=== PATIENT | female | born 1985 | race African-American/Black ===

== ENCOUNTER 2017-03-14 17:50 | Inpatient (IN) | payer MEDICAID, OTHER ==
[~2017-03-14] VITALS: Ht 167.6 cm; Wt 75.9 kg
[2017-03-14 18:11] VITALS: Ht 167.6 cm; Wt 75.9 kg
[2017-03-14 18:12] VITALS: BP 113/84; PULSE 101
[2017-03-14] MEDS ORDERED: PREN1.4T2 PO (18:15)
--- NOTE | 2017-03-14 19:36 | RADRPT ---
PROCEDURE: Biophysical profile CLINICAL INDICATION: distress. History of short cervix. TECHNIQUE: Color and tejeda-scale ultrasound images of an intrauterine gestation were obtained. COMPARISON: None FINDINGS: A single live intrauterine gestation is identified in cephalic position with an estimated hear t rate of 171 beats per minute. The placenta is located anteriorly and has a grade of 1. The cervi x measures 1.5 cm in length.. No evidence of previa or abruption identified. DEANN is 12.8 cm. movement 2/2. tone 2/2. breathing movement 2/2. Qualitative AFV 2/2 Total biophysical profile 03/07 IMPRESSION: 03/07 biophysical profile. Cervix that measures 1.5 cm in length. RPTAT: AA .Esa Chen MD, Date Time Electronically viewed and signed by .Esa Chen MD, on 03/14/2017 19:36 .P/
[2017-03-14] MEDS: LACTATED RINGER'S 1,000 ML IV SCH (20:06)
[2017-03-14 20:39] LABS: ADD UMIC NO; UR ASCORBIC ACID NEGATIVE (NEGATIVE); UR BILIRUBIN (Dip) NEGATIVE (NEGATIVE); UR BLOOD (Dip) NEGATIVE (NEGATIVE); UR CLARITY CLEAR (CLEAR); UR COLOR YELLOW (YELLOW); UR GLUCOSE (Dip) NEGATIVE (NEGATIVE); UR KETONES (Dip) TRACE mg/dL (NEGATIVE); UR LEUKOCYTE ESTERASE (Dip) NEGATIVE Leu/ul (NEGATIVE); UR NITRITE (Dip) NEGATIVE (NEGATIVE); UR SPECIFIC GRAVITY (Dip) 1.009 (1.003-1.030); UR TOTAL PROTEIN (Dip) NEGATIVE (NEGATIVE); UR UROBILINOGEN (Dip) NEGATIVE (NEGATIVE)
[2017-03-14 20:52] LABS: BASOPHILS % 0.3 % (0.0-2.0); EOSINOPHILS # 0.1 10^3/ul (0.0-0.5); EOSINOPHILS % 0.8 % (0.0-7.0); HEMATOCRIT 31.2 % (37.0-47.0); HEMOGLOBIN 10.5 g/dl (12.0-16.0); LYMPHOCYTES # 2.1 10^3/ul (0.8-2.9); LYMPHOCYTES % 27.9 % (15.0-51.0); MEAN CORPUSCULAR HEMOGLOBIN 32.2 pg (29.0-33.0); MEAN CORPUSCULAR HGB CONC 33.7 g/dl (32.0-37.0); MEAN CORPUSCULAR VOLUME 95.7 fl (82.0-101.0); MEAN PLATELET VOLUME 11.8 fl (7.4-10.4); MONOCYTE # 0.4 10^3/ul (0.3-0.9); MONOCYTES % 4.6 % (0.0-11.0); NEUTROPHILS % 66.3 % (39.0-77.0); PLATELET COUNT 162 10^3/UL (140-415); RED BLOOD COUNT 3.26 10^6/ul (4.20-5.40); RED CELL DISTRIBUTION WIDTH 12.3 % (11.5-14.5); WHITE BLOOD COUNT 7.7 10^3/ul (4.8-10.8)
--- NOTE | 2017-03-14 20:59 | RADRPT ---
PROCEDURE: Obstetrical ultrasound greater than 14 weeks CLINICAL INDICATION: labor. Short cervix TECHNIQUE: Real time sonographic imaging of the gravid uterus is performed transabdominally and mu ltiple static tejeda scale and Doppler images are submitted for review as are measurements. The image s are reviewed on the PACS. COMPARISON: Biophysical profile 03/14/2017 FINDINGS: There is a single living intrauterine gestation in cephalic presentation. The heart beat is estimated at 144 bpm. The measurements are as follows: BPD:7.84 cm HC:27.66 cm AC:30.23 cm FL:6.12 cm Estimated gestational age is 31 weeks 6 days. The estimated date of delivery is 05/10/2017. The estimated weight is 2059 grams. Placenta is anterior and grade 1. There is no evidence of placenta previa or abruption. RPTAT:HJJR IMPRESSION: 1. Single viable intrauterine gestation estimated at 31 weeks 6 days with the estimated date of deli very 05/10/2017. 2. Estimated weight 2059 g, the 57th percentile. Physician Rema Date Time Electronically viewed and signed by Physician Rema on 03/14/2017 20:59 /
[2017-03-14 21:35] LABS: BARBITURATES Negative (NEGATIVE); BENZODIAZEPINES Negative (NEGATIVE); CANNABINOIDS Positive (NEGATIVE); COCAINE Negative (NEGATIVE); OPIATES Negative (NEGATIVE)
--- NOTE | 2017-03-14 22:32 | HP ---
Date/Time of Note Date/Time of Note DATE: 03/14/17 TIME: 22:25 OB - History Hx of Present Free Text/Dictation 32yo at 32+2 with hx of short cervix since ~20 weeks on vaginal progesterone presents with painful UCs. Pt thinks her cervix has previously been 0.8cm. She states she has been having [place] Gloria contractions since she was 6 mths , however today she was walking around quite a bit and noticed more pain than she is used to. Pt reports experiencing 5-6 contractions per hour. Reports normal FM, denies LOF, VB or dysuria. Pt lives in [place] where she reports having received PNC since 6wks of . Last visit 03/03. She is in [place] to find schooling for her 3 children since her partner's job has recently relocated him here. S/p BMZ series ending PROCEDURE: Obstetrical ultrasound greater than 14 weeks CLINICAL INDICATION: labor. Short cervix TECHNIQUE: Real time sonographic imaging of the gravid uterus is performed transabdominally and multiple static tejeda scale and Doppler images are submitted for review as are measurements. The images are reviewed on the PACS. COMPARISON: Biophysical profile 03/14/2017 FINDINGS: There is a single living intrauterine gestation in cephalic presentation. The heart beat is estimated at 144 bpm. The measurements are as follows: BPD: 7.84 cm HC: 27.66 cm AC: 30.23 cm FL: 6.12 cm Estimated gestational age is 31 weeks 6 days. The estimated date of delivery is 05/10/2017. The estimated weight is 2059 grams. Placenta is anterior and grade 1. There is no evidence of placenta previa or abruption. RPTAT:HJJR IMPRESSION: 1. Single viable intrauterine gestation estimated at 31 weeks 6 days with the estimated date of delivery 05/10/2017. 2. Estimated weight 2059 g, the 57th percentile. PROCEDURE: Biophysical profile CLINICAL INDICATION: distress. History of short cervix. TECHNIQUE: Color and tejeda-scale ultrasound images of an intrauterine gestation were obtained. COMPARISON: None FINDINGS: A single live intrauterine gestation is identified in cephalic position with an estimated heart rate of 171 beats per minute. The placenta is located anteriorly and has a grade of 1. The cervix measures 1.5 cm in length.. No evidence of previa or abruption identified. DEANN is 12.8 cm. movement 2/2. tone 2/2. breathing movement 2/2. Qualitative AFV 2/2 Total biophysical profile 03/07 IMPRESSION: 03/07 biophysical profile. Cervix that measures 1.5 cm in length. Estimated Due Date: May 07, 2017 : 4 Para: 3 Care: Good Care (per pt report) Obstetrical Complications: None Medical Complications: Other (Hypoglycemia per pt- "If I don't eat I will faint ") Other Concerns: PCN allergy per patient's mother. Pt has no memory of taking PCN. Pt does not think she has anaphylactic reaction Past Family/Social History * chart not available. OB Admission Exam Vital Signs Vital Signs Vital Signs Date Time Temp Pulse Resp B/P Pulse Ox O2 Delivery O2 Flow Rate FiO2 03/14/17 18:12 98.2 101 113/84 Physical Exam HEENT: WNL Heart: Rhythm Normal Abdomen: WNL (gravid, nontender) Extremities: Normal Cervical Dilatation: 1cm Effacement: Other (80%) Station: -3 (posterior) Membranes: Intact Heart Rate: 140's Accelerations: Accelerations Present Decelerations: No Decelerations Varibility: Moderate Contractions on Admission: 6-10 Minutes Apart Last 72 hours Lab Results CBC & BMP 03/14/17 20:44 OB Assessment/Plan Other Assessment: Contractions Short Cervix Reactive NST Plan: Expectant Management Other plan: 1) Contractions: Given pt unknown to [facility] with hx of short cervix, will admit for observation overnight in the setting of ongoing contractions despite no change in SVE over 2 hours. FFN returned positive although test not indicated since TVCL <2cm -Continuous toco -At this time, delivery does not seem imminent. However, if UCs become more frequent, change in intensity or cervical dilation progresses, will repeat BMZ course with Nifedipine tocolysis through BMZ window and start GBS ppx with Ancef given allergy to PCN. 2)Short Cervix: Unclear if TVCL tonight is stable or different from prior given unavailability of out of state records. -Continue nightly vaginal progesterone -Repeat TVCL in AM -Consider MFM consult in AM 3)FWB: Reassuring. Reactive NST -NST qshift. CASTILLO NOLAN MD Mar 14, 2017 22:32
--- NOTE | 2017-03-15 00:27 | TRIAGE ---
OB Triage Datetime Report Generated by CPN: 03/15/2017 00:26 Datetime: 03/14/2017 23:55 Stage of : OB Triage Datetime: 03/14/2017 23:49 Monitor Mode: External Quality: Mild Pattern: Normal: <= 5 Contractions in 10 Minutes Resting Tone [place]: Relaxed Monitor Mode: External US FHR Baseline Changes: No Baseline Change Variability: Moderate 6-25 bpm Accelerations: 15X15 Decelerations: None Category: Category I Vaginal Exam Dilatation (cms): 1.0 Effacement (%): 70 Station: -3 Exam By: Vannessa Jonathon Membrane Status: Intact Vaginal Bleeding: None Cervix, Consistency: Moderate Cervix, Position: Posterior Datetime: 03/14/2017 23:00 Stage of : OB Triage Labor Evaluation Frequency: 2-6 Monitor Mode: External Quality: Mild Pattern: Normal: <= 5 Contractions in 10 Minutes Resting Tone [place]: Relaxed FHR Baseline Changes: No Baseline Change Variability: Moderate 6-25 bpm Accelerations: 15X15 Decelerations: None Pain Presence: Intermittent Pain Type: Cramping Pain Location: Abdomen Datetime: 03/14/2017 22:18 Stage of : OB Triage Monitor Mode: External Quality: Mild Pattern: Normal: <= 5 Contractions in 10 Minutes Resting Tone [place]: Relaxed Heart Rate FHR Baseline Rate: 150 Monitor Mode: External US FHR Baseline Changes: No Baseline Change Variability: Moderate 6-25 bpm Accelerations: 15X15 Decelerations: None Category: Category I Datetime: 03/14/2017 21:34 Stage of : OB Triage Datetime: 03/14/2017 21:08 Vaginal Exam Dilatation (cms): 1.0 Effacement (%): 80 Station: -3 Exam By: Chelsea RODRIGUEZNE Vaginal Bleeding: None Cervix, Consistency: Soft Cervix, Position: Posterior Presentation 'A': Cephalic Datetime: 03/14/2017 21:01 Labor Evaluation Frequency: 4-8 Monitor Mode: External Duration (sec)2399: 50-60 Pattern: Normal: <= 5 Contractions in 10 Minutes Resting Tone [place]: Relaxed Heart Rate FHR Baseline Rate: 145 Monitor Mode: External US Variability: Moderate 6-25 bpm Accelerations: 10X10 Decelerations: None Category: Category I Pain Assessment Pain Scale: 3 Pain Presence: Intermittent Pain Type: Cramping Pain Goal: 3 Pain Relief Measures: Comfort Measures Datetime: 03/14/2017 19:59 Labor Evaluation Frequency: 4-6 Monitor Mode: External Duration (sec)2399: 50-70 Pattern: Normal: <= 5 Contractions in 10 Minutes Resting Tone [place]: Relaxed Heart Rate FHR Baseline Rate: 145 Monitor Mode: External US Variability: Moderate 6-25 bpm Accelerations: 10X10 Decelerations: None Category: Category I Pain Assessment Pain Scale: 6 Pain Presence: Intermittent Pain Type: Cramping Pain Location: Abdomen Pain Goal: 3 Pain Relief Measures: Comfort Measures Datetime: 03/14/2017 19:20 Stage of : OB Triage Datetime: 03/14/2017 19:00 Labor Evaluation Frequency: 4-5 Monitor Mode: External Duration (sec)2399: 50-70 Quality: Mild Pattern: Normal: <= 5 Contractions in 10 Minutes Resting Tone [place]: Relaxed Heart Rate FHR Baseline Rate: 145 Monitor Mode: External US Variability: Moderate 6-25 bpm Accelerations: 10X10 Decelerations: None Category: Category I Pain Assessment Pain Scale: 8 Pain Presence: Intermittent Pain Type: Cramping Pain Location: Abdomen Pain Goal: 3 Pain Relief Measures: Comfort Measures Datetime: 03/14/2017 18:22 Stage of : OB Triage Datetime: 03/14/2017 18:08 Stage of : OB Triage Assessment Type: Triage Maternal Assessment Level of Consciousness: Fully Conscious DTR's/Clonus: DTRs 2+; No Clonus Headache: Denies Blurred Vision: No Respiratory Effort: Unlabored; Regular Rhythm; Equal Expansion Breath Sounds, Left: Clear and Equal Breath Sounds, Right: Clear and Equal Nausea/Vomiting: Denies RUQ Epigastric Pain: Denies Facial Edema: None Temperature Route: Axillary Fall Risk Assessment History of Falling: (0) No Secondary Diagnosis: (0) No Ambulatory Aid: (0) Bedrest/Nurse Assist IV Therapy: (0) No Gait: (0) Normal/Bedrest/Immobile Mental Status: (0) Oriented to Own Ability Fall Score: 0 Fall Risk Score Definition: No Risk: No action required Labor Evaluation Frequency: 0 Monitor Mode: External Quality: Moderate Pattern: Normal: <= 5 Contractions in 10 Minutes Resting Tone [place]: Relaxed Heart Rate FHR Baseline Rate: 150 Monitor Mode: External US Variability: Moderate 6-25 bpm Accelerations: None Decelerations: None Category: Category II Pain Assessment Pain Scale: 8 Pain Presence: Intermittent Pain Type: Cramping; Contraction Pain Location: Abdomen Pain Goal: 3 Pain Relief Measures: Comfort Measures Datetime: 03/14/2017 18:07 EGA: 32.2 Datetime: 03/14/2017 18:04 Time of Arrival: 03/14/2017 17:50 Arrived By: Ambulatory Arrived From: Home Chief Complaint: C/O ABDOMINAL PAIN, DENIES BLEEDING OR LEAKING. STATES HAS SHORT CERVIX 0.1, [place]ACE[place] ES IN [place], TRAVELING ON BUSINESS Movement: Present Contractions: Irregular Rupture of Membranes: Denies Vaginal Bleeding: None Vaginal Discharge: Present Recent Sexual Intercouse: Denies Abdominal Trauma: Not Applicable Patient Complaints: Contractions; Cramping Additional Patient Complaints: hx of marijuana use for anxiety Time Provider Notified: 03/14/2017 18:22 Provider Notified: LYNETTE Initial Plan: MONITOR, U/A, C_S, UDS, EFW, CL, FFN, BPP, IV HYDRATION
[2017-03-15] MEDS ORDERED: PROGESTERONE 100 MG CAP PO ONE (00:30)
[2017-03-15] MEDS ORDERED: AL HYDROX/MG HYDROX/SIMETH 30 ML CUP PO PRN (00:30)
[2017-03-15] MEDS ORDERED: ACETAMINOPHEN 325 MG TAB PO PRN (00:30)
[2017-03-15] MEDS: LACTATED RINGER'S 1,000 ML IV SCH ×3 (01:22→15:33)
--- NOTE | 2017-03-15 08:55 | RADRPT ---
PROCEDURE: Limited OB ultrasound CLINICAL INDICATION: Contractions, short cervix TECHNIQUE: Sonographic evaluation to assess the cervical length was performed. Transabdominal frederick ging of the gravid uterus was performed. COMPARISON: No prior exam is available for comparison. FINDINGS: There is a single live intrauterine with cardiac activity, with a heart rate o f 141 bpm. position is cephalic. The placenta is anterior. The cervix is closed with a juan th of 2.0 cm. IMPRESSION: The cervix is closed with a length of 2.0 cm. RPTAT: HH .Nikkie Perez MD, MD Date Time Electronically viewed and signed by .Nikkie Perez MD, on 03/15/2017 08:54 .G/
--- NOTE | 2017-03-15 09:58 | PN ---
Date/Time of Note Date/Time of Note DATE: 03/15/17 TIME: 09:53 OB Subjective Subjective Subjective Patient complains of feeling painful Min Gloria contractions. Denies any LOF , or vaginal bleeding or decreased movement. OB Objective Objective Objective GA: A&O, in moderate distress due to feeling min Gloria contractions Abdomen: Soft, Gravid, non tender. NST: Cat 1 Occasional contractions seen on the monitor TVCL repeated : 2 cm UC : trace Ketone. OB Assessment/Plan Other Assessment: HD#2 Admitted due to feeling uterine contractions. History of PTL. s/p Steriods, 1 full course No cervical change noted since yesterday Patient is in moderate distress due to [place] of [place] Gloria contractions. Discussed with the patient, since there is no cervical change, this is consistent with false labor pain Cosider Nifedipine orally for symptomatic releif Hold of rescue dose of steriod at this time,since there is no sign of pending delivery Perinatology/ Neonatology consultation Possible DC home tomorrow if remain stable Desire to fly back to [place]. Discorraged, Do not recommend due to risk for PTD. ANTHONY MOE MD Mar 15, 2017 09:58
[2017-03-15] MEDS ORDERED: NIFEdipine 10 MG CAP PO ONE (10:00)
[2017-03-15] MEDS ORDERED: NIFEdipine 10 MG CAP PO SCH (12:00)
[2017-03-15] MEDS ORDERED: ONDANSETRON 4 MG INJ IV PRN (12:30)
[2017-03-15] MEDS ORDERED: MAGNESIUM SULFATE 4 GM/100 ML 100 ML IVPB ONE (15:30)
[2017-03-15] MEDS ORDERED: MAGNESIUM SULFATE 20 GM/500 ML 500 ML IV SCH (15:30)
[2017-03-15] MEDS: BETAMET NA PHOS/AC(6 MG/ML) 5ML INJ IM SCH (15:35)
--- NOTE | 2017-03-15 15:52 | QN ---
Documentation Job number: Neonatology consultation for 32+ weeks Comment I was asked to talk with his mother who is 32.3 week in labor with short cervix. Mother is 32-year-old 4 para 3 living 3 with care in [place]. EDC 05/17/17. Mother states that was complicated by short cervix at 20 weeks of gestation and she has been on vaginal progesterone. She was noted to have a short cervix and was recommended bedrest and also received 1 course of betamethasone 4 weeks prior to admission. She has scattered intermittent contractions since 6 months . No records are available at the present time and mother's history is significant for anxiety and use of marijuana for anxiety. Her labs that were done after admission showed urine culture with mixed organisms blood type A+ antibody negative, ultrasound consistent with 31.6 weeks on 03/14 with an estimated weight of 2059 g. Mother was given Procardia but however had lots of discomfort and did not tolerate therefore will be started on magnesium and betamethasone now. Mother states that her other children not age 16 years, 13 years and 7 years and a 13-year-old was 34+ weeks premature. All are doing well at the present time with no medical problems. Parents are relocating here and mother states that she traveled AGAINST MEDICAL ADVICE. I discussed with mother about the fetus being 32 weeks with risk for respiratory distress syndrome and treatment with the oxygen therapy, CPAP and intubation and surfactant administration if has moderate respiratory distress with oxygen requirement of greater than 30%. I discussed about the risks and benefits of treatment with oxygen as well as CPAP and ventilatory therapy. Also discussed about apnea prematurity and treatment with caffeine as well as nasal cannula and CPAP. Discussed about risk of infection due to prematurity and obtaining lab tests on admission and possibility of starting on antibiotics if the suspicion for infection is high. Also discussed about the infant to be made n.p.o. and to be started on IV fluids and as well as IV nutrition and subsequently to be started on tube feedings which would be increased gradually while is being monitored for gastroesophageal reflux and NEC. Mother would like to breast-feed the infant and encourage her to pump breastmilk as soon as the infant is born. Discussed about the benefits of breastmilk. Also discussed about risk for hyperbilirubinemia and the possibility of phototherapy, at risk for neurodevelopmental delay due to prematurity. Parents were reassured about good prognosis of 95-98% survival and 32 weeks and greater and length of hospitalization. Mother is extremely anxious but however I answered all mother's questions and reassured her about good prognosis. Mother's boyfriend was also present and answered all his questions also. As both parents had no further questions the discussion was concluded after reassuring them about good prognosis. LAURA LANG MD Mar 15, 2017 15:52
[2017-03-15 18:18] LABS: CREATININE 0.58 mg/dl (0.44-1.00); POTASSIUM 3.8 mmol/L (3.5-5.1)
[2017-03-16] MEDS: MAGNESIUM SULFATE 20 GM/500 ML 500 ML IV SCH ×3 (00:10→21:12)
[2017-03-16] MEDS ORDERED: ZOLPIDEM 5 MG TAB PO PRN (01:00)
[2017-03-16] MEDS: LACTATED RINGER'S 1,000 ML IV SCH ×3 (07:46→22:25)
--- NOTE | 2017-03-16 09:59 | RADRPT ---
PROCEDURE: Obstetrical ultrasound CLINICAL INDICATION: . OB ultrasound with fluid volume assessment. TECHNIQUE: Obstetrical ultrasound of the uterus for fluid volume assessment. Transabdomi nal imaging of the uterus was performed. COMPARISON: 03/15/2017 FINDINGS: The amniotic fluid index equals approximately 13.0 cm. heart rate: 130 Beats per minute. Presentation: Cephalic Placenta anterior IMPRESSION: Amniotic fluid index equals 13.0 cm. RPTAT: AADD .Ector Craven MD, MD Date Time Electronically viewed and signed by .Ector Craven MD, on 03/15/2017 23:45 .B/
[2017-03-16 14:30] LABS: INR 1.13; PARTIAL THROMBOPLASTIN TIME 26.9 Sec (25.0-35.0); PROTIME 14.5 Sec (12.2-14.2); PT RATIO 1.1
[2017-03-16] MEDS: BETAMET NA PHOS/AC(6 MG/ML) 5ML INJ IM SCH (15:54)
--- NOTE | 2017-03-16 18:57 | PN ---
Date/Time of Note Date/Time of Note DATE: 03/16/17 TIME: 18:52 OB Subjective Subjective Subjective March 16, 2070 kitchen cleaner consult This patient is a 32 years old 4 ,para 3 ,now 31 weeks and 6 days,who came to triage area complaining of contractions . On ultrasound ,her cervix appeared to be short 1.5 cm ,she did have some contractions , she was hospitalized utilized , Betamethasone was given, as well as mag sulfate, On ultrasound study of March 15; her biophysical profile was 03/07 ,her DEANN was 13.0 ,however on 03/14 the report was 12 today she has very scattered contraction . she received her second dose of betamethasone .she is on Procardia 20 mg every 6 hours and is fairly stable Laboratory Tests Test 03/16/17 00:02 03/16/17 05:51 03/16/17 13:47 03/16/17 17:46 Magnesium Level 5.7mg/dl 6.5mg/dl 6.0mg/dl 5.8mg/dl Prothrombin Time 14.5Sec Prothrombin Time Ratio 1.1 INR International Normalized Ratio 1.13 Activated Partial Thromboplast Time 26.9Sec Hepatitis B Surface Antigen NEGATIVE Current Medications Medications (Trade) Dose Ordered Sig/Cecelia Route PRN Reason Start Time Stop Time Status Last Admin Dose Admin Lactated Ringer's (Lr) 1,000 ml @ 125 mls/hr Q8H IV 03/14/17 20:00 03/15/17 15:16 DC 03/15/17 09:44 Acetaminophen (Tylenol Tab) 650 mg Q4H PRN PO PAIN AND OR ELEVATED TEMP 03/15/17 00:30 03/15/17 14:40 Al Hydrox/Mg Hydrox/Simethicone (Mag-Al Plus) 30 ml Q6H PRN PO GASTROINTESTINAL UPSET 03/15/17 00:30 03/16/17 00:13 Progesterone (Prometrium) 200 mg ONCE ONCE PO 03/15/17 00:30 03/15/17 00:31 DC 03/15/17 01:22 Nifedipine (Procardia) 20 mg ONCE ONCE PO 03/15/17 10:00 03/15/17 10:01 DC 03/15/17 10:12 Nifedipine (Procardia) 10 mg Q6 PO 03/15/17 12:00 03/15/17 15:04 DC Ondansetron HCl 4 mg 4 mg Q6H PRN IV NAUSEA AND/OR VOMITING 03/15/17 12:30 03/15/17 12:48 Magnesium Sulfate 500 ml @ 50 mls/hr Q10H IV 03/15/17 15:30 03/15/17 18:32 DC 03/15/17 15:59 Magnesium Sulfate 100 ml @ 200 mls/hr ONCE ONCE IVPB 03/15/17 15:30 03/15/17 15:59 DC 03/15/17 15:33 Lactated Ringer's (Lr) 1,000 ml @ 75 mls/hr [id number] IV 03/15/17 15:04 03/16/17 07:46 Betamethasone Acet/Betameth SodPhos 12 mg 12 mg Q24H IM 03/15/17 15:30 03/16/17 15:31 DC 03/16/17 15:54 Magnesium Sulfate (Magnesium Sulfate 20 Gm/500 ml) 500 ml @ 37.5 mls/hr [id number] IV 03/15/17 18:30 03/16/17 07:50 Zolpidem Tartrate (Ambien) 5 mg ONCE PRN PO INSOMNIA 03/16/17 01:00 03/16/17 01:01 DC 03/16/17 00:52 Progesterone (Prometrium) 200 mg HS VAG 03/16/17 21:00 If she continues to be stable and no contraction ,we might be able to discharge her home, other than will keep her for few more days. The interesting part is the cervical length which on the was reported 1.5 on the the report was 2 cm. she seams to be fairly stable. RENNY ECHEVERRIA MD Mar 16, 2017 18:56
[2017-03-16] MEDS: PROGESTERONE 100 MG CAP VAG SCH (21:05)
[2017-03-16] MEDS: DIPHENHYDRAMINE 25 MG CAP PO SCH (23:30)
[2017-03-17] MEDS: ZOLPIDEM 5 MG TAB PO PRN ×2 (01:23→22:53)
[2017-03-17] MEDS: MAGNESIUM SULFATE 20 GM/500 ML 500 ML IV SCH (09:03)
--- NOTE | 2017-03-17 12:13 | QN ---
Documentation Comment HD 32+wks With shortcervic and labor,currently not darlene +FM No VB No LOF No Ctxs NST reassring toco No CTXs --->Repeat CXL tomorrow --->consider discharge tomorrow MARÍA OJEDA M.D. Mar 17, 2017 12:13
--- NOTE | 2017-03-17 17:24 | PN ---
DATE: 03/17/2017 SUBJECTIVE DATA: The patient is currently at 32 weeks and 5 days. She was admitted with complaint of contractions. Short cervix was found on the exam. She has been moving from [place] to [place] and has been house hunting. She states that in [place], her cervical length was 8 mm. However, her cervical length initially here was 1.5 cm and yesterday was 2 cm. She has been on Procardia, however, she continues to contract. PLAN: 1. Discontinue Procardia. 2. Start magnesium sulfate. 3. Continue with betamethasone. 4. In-house management until 34 weeks. 5. At 34 weeks, we will reassess and if patient is stable without any contractions and no change in cervical exam, then she can be possibly discharged home. Dictated By: Giselle Nichols MD /[email or web address]/ralph /Document#: [id number]
[2017-03-17] MEDS: DIPHENHYDRAMINE 25 MG CAP PO SCH (21:00)
[2017-03-17] MEDS: PROGESTERONE 100 MG CAP VAG SCH (21:08)
--- NOTE | 2017-03-18 08:20 | RADRPT ---
PROCEDURE: Obstetrical ultrasound, limited. CLINICAL INDICATION: Pelvic pain. TECHNIQUE: Multiple sonographic images of the pelvis were obtained using transabdominal technique . Images were obtained with tejeda scale and color Doppler. Transvaginal evaluation of the cervix was also performed. The images were reviewed on a PACS workstation. COMPARISON: 03/15/2017. FINDINGS: There is a single living intrauterine gestation with the fetus in a vertex presentation. hear t tones of 159 beats per minute are identified. The placenta is anterior in location, grade 1. The cervix is shortened measuring 1.8 cm. IMPRESSION: Single viable intrauterine gestation. Shortened cervix measuring 1.8 cm. .Derick Huerta MD, Date Time Electronically viewed and signed by .Derick Huerta MD, MD on 03/18/2017 08:20 .T/
[2017-03-18] MEDS: DIPHENHYDRAMINE 25 MG CAP PO SCH ×2 (21:00→22:53)
[2017-03-18] MEDS: PROGESTERONE 100 MG CAP VAG SCH (21:11)
--- NOTE | 2017-03-19 02:52 | QN ---
Documentation Comment Progress Note for 03/18/17. 32 y.o. with an IUP at 33 weeks with a short cervix. Tried to see this pt earlier but she was on a long phone call with her and did not want to be disturbed. Had reviewed the chart earlier though and decided that the pt was not going to be d/c'ed and had the nurses relay that to her.Pt has a h/o a short cx of 0.8cm in [place] and has been on progesterone suppositories since 20 weeks. She came in with contractions and her cx was 1.5 cm. 03/17 it was 2.0 but 03/18 it was 1.8cm. Pt is no longer on magnesium and had a reaction to Procardia and is only on strict bedrest now but no meds. She seems in reasonable spirits.Dr Nichols did a consult and recommended that the pt stay until 34 weeks. This was relayed to the pt and all questions answered. KEKE KING MD Mar 19, 2017 02:52
--- NOTE | 2017-03-19 13:58 | QN ---
Documentation Comment HD 32+wks With shortcervic and labor,currently not darlene +FM No VB No LOF No Ctxs NST reassring toco No CTXs --->close observation --->possibl discharge at 34 weeks MARÍA OJEDA M.D. Mar 19, 2017 13:58
== END 2017-03-19 20:08 | disposition left against medical advice (07) | DRG 780 ==
LOC: OBT 17:50 → L-D 17:50 → OBG 23:55 → OBT 23:55
PROVIDERS: ADMIT Obstetrics & Gynecology; ATTEND Obstetrics & Gynecology
DX: O47.03 False labor before 37 completed weeks of gestation, third trimester (principal); O26.873 Cervical shortening, third trimester; Z3A.34 34 weeks gestation of pregnancy
CPT/HCPCS: 36415; 76815; 76816; 76817; 76818; 80048; 80307; 81003; 82731; 83735; 84112; 85025; 85610; 85730; 86592; 86850; 86900; 86901; 87086; 87340; 96360; 96361; G0463; J0702; J2405; J3475; J7120